=== PATIENT | male | born 2000 | race African-American/Black ===

== ENCOUNTER 2019-06-09 12:17 | Inpatient (IN) | payer OTHER ==
[~2019-06-09] VITALS: Ht 172.7 cm; Wt 100.0 kg
[2019-06-09] MEDS ORDERED: LEXA1TAB PO (12:41)
[2019-06-09 12:56] LABS: HEMATOCRIT 47.1 % (42.0-52.0); HEMOGLOBIN 14.6 g/dl (13.5-17.5); MEAN CORPUSCULAR HEMOGLOBIN 21.2 pg (27.0-33.0); MEAN CORPUSCULAR VOLUME 68.4 fl (80.0-96.0); PLATELET COUNT, AUTOMATED 340 10^3/uL (150-450); RED BLOOD COUNT 6.89 10^6/uL (4.30-6.10); WHITE BLOOD COUNT 6.8 10^3/uL (4.0-10.0)
[2019-06-09 13:33] LABS: ACETAMINOPHEN LEVEL < 2.0 UG/ML (10.0-30.0); ALBUMIN 3.8 GM/DL (3.2-5.2); ALT/SGPT 89 U/L (12-78); BILIRUBIN,DIRECT 0.1 MG/DL (0.0-0.2); BILIRUBIN,TOTAL 0.4 MG/DL (0.2-1.0); BLOOD UREA NITROGEN 13 MG/DL (7-18); CALCIUM LEVEL 9.6 MG/DL (8.5-10.1); CARBON DIOXIDE LEVEL 26 MEQ/L (21-32); CHLORIDE LEVEL 106 MEQ/L (98-107); CREATININE FOR GFR 1.08 MG/DL (0.70-1.30); ETHYL ALCOHOL (ETHANOL) < 0.003 % (0.000-0.010); GLUCOSE, FASTING 80 MG/DL (70-100); POTASSIUM SERUM 4.6 MEQ/L (3.5-5.1); SALICYLATE LEVEL < 1.7 MG/DL (5.0-30.0); SODIUM LEVEL 140 MEQ/L (136-145); TOTAL PROTEIN 7.6 GM/DL (6.4-8.2)
[2019-06-09 15:14] LABS: AMPHETAMINES LEVEL URINE NEGATIVE (NEGATIVE); BARBITURATES URINE NEGATIVE (NEGATIVE); BENZODIAZEPINES URINE NEGATIVE (NEGATIVE); CANNABINOIDS URINE NEGATIVE (NEGATIVE); COCAINE METABOLITE URINE NEGATIVE (NEGATIVE); METHADONE URINE NEGATIVE (NEGATIVE); OPIATES URINE NEGATIVE (NEGATIVE); PHENCYCLIDINE URINE NEGATIVE (NEGATIVE)
[2019-06-09] MEDS ORDERED: traZODone 50 MG TAB PO PRN (15:15)
[2019-06-09] MEDS ORDERED: NICOTINE 21MG/24HR 1 EA TRANSDERMAL TD PRN (15:15)
[2019-06-09 17:56] VITALS: BP 141/86
[2019-06-10 06:41] VITALS: BP 129/63
--- NOTE | 2019-06-10 11:47 | HPEPDOC ---
General Date of Admission Jun 09, 2019 at 15:06 Date of Service: Jun 10, 2019 Chief Complaint The patient is a 19-year-old male Who presented to the hospital with depression and suicidal ideation History of Present Illness Patient is a 19-year-old male with past medical history of depression who pr esented to the emergency room with depression and suicidal ideation. Patient was admitted to the inpatient mental health unit. Hospitalist medicine was consulted for medical screening evaluation. Currently patient reports that he is not experiencing any headache, nausea, vomiting, chest pain, shortness of breath, palpitations, abdominal pain, constipation, diarrhea or any urinary discomfort. Patient denies any change in his weight or appetite. Home Medications Scheduled Escitalopram Oxalate (Lexapro) 10 Mg Tablet, 10 MG PO DAILY, (Reported) Allergies Coded Allergies: SEAFOOD (Verified Allergy, Unknown, anaphylaxis, 06/09/19) Past Medical History Medical History Depression Surgical History Patient reports that he has laser eye surgery of both eyes. Family History - Patient has reported that his parents do not have any medical problems Social History - Denies the use of alcohol or illicit drugs; patient reports smoking 1 cigarette a day - Denies recent travel or sick contacts - [place] Occupation; this part of the [employer] Review of Systems Other systems 10 point review of systems complete, all negative otherwise stated in HPI Vital Signs - Vitals: BP 129/63, HR 68, RR 14, Sat 100RA, Temp 98.3F - General: Lying in bed, No acute distress, Speaking in full sentences, AAOx3 - HEENT: NC, AT, PERRLA - CVS: RRR, +S1S2 - Lungs: Fair air entry bilaterally, No appreciable wheezing / rales / rhonchi - Abdomen: Soft, Non-distended, Non-tender - Extremities: No lower extremity edema, No calf tenderness - Neuro: No focal motor or sensory deficit - Skin: No visible rashes Laboratory Data Labs 24H Laboratory Tests 2 06/09/19 12:39: Nucleated Red Blood Cells % (auto) 0.0 06/09/19 12:42: Anion Gap 8, Calcium Level 9.6, Total Bilirubin 0.4, Direct Bilirubin 0.1, Aspartate Amino Transf (AST/SGOT) 36, Alanine Aminotransferase (ALT/SGPT) 89H, Alkaline Phosphatase 92, Total Protein 7.6, Albumin 3.8, Albumin/Globulin Ratio 1.00, Thyroid Stimulating Hormone (TSH) 2.320, Salicylates Level < 1.7L, Acetaminophen Level < 2.0L, Ethyl Alcohol Level < 0.003 06/09/19 14:33: Urine Opiates Screen NEGATIVE, Urine Methadone Screen NEGATIVE, Urine Barbiturates Screen NEGATIVE, Urine Phencyclidine Screen NEGATIVE, Urine Amph etamines Screen NEGATIVE, Urine Benzodiazepines Screen NEGATIVE, Urine Cocaine Metabolite Screen NEGATIVE, Urine Cannabinoids Screen NEGATIVE CBC/BMP Laboratory Tests 06/09/19 12:39 06/09/19 12:42 Plan / VTE VTE Prophylaxis Ordered?: Yes Plan Plan Suicidal ideation / Depression - Patient has been admitted to inpatient mental health unit - This is currently being managed by psychiatry No significant medical problems DVT prophylaxis - c/w early ambulation Female salesman/owner was present throughout the duration of this history and physical examination Please re-consult hospitalist service as needed ANURAG HERRMANN MD Jun 10, 2019 11:47
--- NOTE | 2019-06-10 14:34 | MHHPEPDOC ---
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 The patient is met with and he is fairly guarded and vague and unable to describe the majority of his symptoms. The patient reports that he has no history of engaging this and had low mood, loss of interest, and insomnia after he joined the 8 months ago. Secondary to the stressful environment in the the patient generally appears ambivalent about interacting with anyone in the mental health unit. When I met with the patient he could only describe the above mentioned vague symptoms and continue to report that he has suicidal ideation with no intention or plan now that he is on the unit. Review Of Systems Depression: As above. Anxiety: The patient denies any excessive worry associated with physical symptoms. They deny any experience of discreet panic in the past. Domi: The patient denies any episodes of euphoria/dysphoria associated with decreased need for sleep, hedonism, talkatively or impulsivity lasting longer than 5 days. Psychotic: The patient denies any experiences of auditory or visual hallucinations. They deny any episodes of paranoia or delusional thinking in the past Trauma: The patient denies any traumatic events associated with nightmares or intrusive thoughts. Borderline: The patient screens negative for borderline personality at this junction. Past Psychiatric History The patient reports no history of psychiatric admissions, medication trials or current follow up. Denies any history of suicide attempts. Allergies Please see below. Family Psychiatric History The patient denies/is unaware any history of mental health history including addictions and suicide. Social History The patient is a never man with no children, self identifies his heterosexual. He lives in the [facility]. He originally came from [facility] and reports that he had a poor relationship with his parents due to reported corpor al punishment. He has been in the army for roughly 8 months. He reports he has 3 siblings that are younger, but he has a poor relationship with them. He subsists on income and works in the [employer]. No history of legal problems. Substance Abuse History The patient reports using tobacco roughly one cigarette a day. Denies excessive alcohol use, illicit drug use, or substance use treatment. Medical History Patient has no significant past medical history. Mental Status Examination General: Well dressed with good hygiene Speech: Spontaneous and fluid Thought processes: Linear and logical MSK: Smooth and coordinated gait, no signs of tremors or involuntary orofacial movements Thought content: Guarded Abstract reasoning, and computation: Intact Description of associations: Intact Description of abnormal or psychotic thoughts: Denies any suicidal or homicidal ideation. Denies any auditory or visual hallucinations. Does not appear to be responding to internal stimuli. Does not appear to be endorsing any bizarre or paranoid ideation. Judgment: Unclear Insight: Unclear Orientation: Alert and orientated 3 Cognition: Grossly normal Recent and remote memory: Intact Attention span and concentration: Intact Fund of knowledge: Adequate Mood: "fine" Affect: Dysthymic and mildly irritable Diagnoses Adjustment disorder, mild with disruption of mood and conduct. Tobacco use disorder, mild. Assessment and Plan Adjustment disorder: We'll start Wellbutrin 150 mg extended release. Discussed risks, benefits, and potential side effects as well as alternatives. Tobacco use disorder: Offer nicotine patch. Concern for malingering: We'll continue to monitor for discrepancies between objective and subjective reports. Disposition The patient will need a further inpatient admission in order to further understand the situation to treat his depression and to reduce his risk for suicide while lasting more than 2 midnights. Problem List 1. Risk of suicide. 2. Depression. 3. Ineffective coping Initial Treatment Plan 1. Patient was admitted on a 9.39 legal status. 2. Complete history was obtained. 3. With patients permission, family will be contacted and database will be expanded. 4. Patients medication regimen will be reviewed and changed accordingly. 5. Patient will be provided with protected environment. 6. Patient will be treated with individual, group, and milieu therapies. 7. Patient will receive supportive psych-education. 8. Discharge planning will commence immediately. 9. Outpatient follow-up treatment will be strongly recommended. 10. The initial treatment plan will focus initially on: Estimated Length Of Stay Three days. Time Spent 70 minutes. Vital Signs Vital Signs Date Time Temp Pulse Resp B/P (MAP) Pulse Ox O2 Delivery O2 Flow Rate FiO2 06/10/19 06:41 98.3 68 14 129/63 (85) 06/09/19 17:56 100 Room Air Medications Scheduled Escitalopram Oxalate (Lexapro) 10 Mg Tablet, 10 MG PO DAILY, (Reported) Allergies Coded Allergies: SEAFOOD (Verified Allergy, Unknown, anaphylaxis, 06/09/19) JUDI EVERETT DO Jun 10, 2019 14:34
[2019-06-10 20:30] VITALS: BP 142/87
[2019-06-11 06:36] VITALS: BP 122/58
[2019-06-11] MEDS: buPROPion **XL** TABLET 150MG (WELLBUTRIN XL) PO SCH (08:47)
--- NOTE | 2019-06-11 11:42 | MHIPNPDOC ---
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 The patient is met with and he is fairly guarded and vague and unable to describe the majority of his symptoms. The patient reports that he has no history of engaging this and had low mood, loss of interest, and insomnia after he joined the 8 months ago. Secondary to the stressful environment in the the patient generally appears ambivalent about interacting with anyone in the mental health unit. When I met with the patient he could only describe the above mentioned vague symptoms and continue to report that he has suicidal ideation with no intention or plan now that he is on the unit. Interval History The patient was met with today. He was notably still somewhat guarded and dysthymic. The patient was met with in his room he was reading his book while laying unusually on his bed. The patient reports that he still feels quite down, after exploration he reports that he feels that the [employer] is a major source of his stress and that "everyone knows" how he might get better. When asked to elaborate he describes that this is a major stressor and that the [employer], if he was med boarded he would be much more amenable. The patient reports that he still had some trouble sleeping last night and had felt that the trazodone was not as helpful. He has had no major behavior problems and has become more active on the unit after significant prompting from staff. The patient reports that he still has some hopelessness; however, he had initially admitted to suicidal thoughts but when questioned more assertively he rapidly loses his reported "suicidal ideation" and describes far more likely hopelessness about his situation of two more years in the . No major behavioral problems overnight. Review Of Systems General: Denies fever or appetite changes Cardiovascular: Denies Chest pain or palpations GI: Denies Nausea, vomiting, or bowel changes Respiratory: Denies shortness of breath or cough Neuro: Denies dizziness, tremors Derm: Denies any rashes or pruritus : Denies any dysuria or urinary problems MSK: Denies any muscle tightness or stiffness HEENT: Denies any vision changes or headaches Heme/Lymph: denies any bruising or bleeding Endo: denies any cold/heat intolerance or water intake changes Psychotherapy None on this visit. Vital Signs Reviewed. Mental Status Examination General: Well dressed with good hygiene Speech: Spontaneous and fluid Thought processes: Linear and logical MSK: Smooth and coordinated gait, no signs of tremors or involuntary orofacial movements Thought content: Hopelessness Abstract reasoning, and computation: Intact Description of associations: Intact Description of abnormal or psychotic thoughts: Reports suicidal ideation as above, denies homicidal ideation. Denies auditory or visual hallucinations. Does not appear to be responding to internal stimuli. Judgment: Limited Insight: Limited Orientation: Alert and oriented 3 Cognition: Grossly normal Recent and remote memory: Intact Attention span and concentration: Intact Fund of knowledge: Adequate Mood: "fine" Affect: Fairly dysthymic Diagnoses Adjustment disorder, mild with disruption of mood and conduct. Tobacco use disorder, mild. Assessment and Plan Adjustment disorder: Continue Wellbutrin 150 mg extended release, will increase trazodone to 100 mg nightly. Discussed risks benefits and potential side effects of this medication combination. Tobacco use disorder: Offer nicotine patch. Concern for malingering: We'll continue to monitor for discrepancies between objective and subjective reports. Disposition The patient will need a further inpatient admission in order to treat his de pression and reported suicidal ideation as well as planned for safe discharge. Time Spent 15 minutes [id number] Vital Signs Vital Signs Date Time Temp Pulse Resp B/P (MAP) Pulse Ox O2 Delivery O2 Flow Rate FiO2 06/11/19 06:36 97.9 61 14 122/58 (79) 06/10/19 20:30 Room Air 06/09/19 17:56 100 Current Medications Current Medications Medications (Trade) Dose Ordered Sig/Rina Route PRN Reason Start Time Stop Time Status Last Admin Dose Admin Bupropion HCl (Wellbutrin Xl) 150 mg DAILY PO 06/11/19 09:00 06/11/19 08:47 Home Med (Med Rec Complete!) ASDIRECTED XX 06/09/19 15:00 06/09/19 14:53 DC Nicotine (Nicoderm Cq 21mg) 1 patch DAILY PRN TD smoking cessation 06/09/19 15:15 Trazodone HCl (Desyrel) 50 mg QHSP PRN PO INSOMNIA 06/09/19 15:15 06/10/19 20:46 Allergies Coded Allergies: SEAFOOD (Verified Allergy, Unknown, anaphylaxis, 06/09/19) JUDI EVERETT DO Jun 11, 2019 11:42
[2019-06-11 18:15] VITALS: BP 146/65
[2019-06-11] MEDS ORDERED: traZODone 50 MG TAB PO PRN (18:30)
[2019-06-12 06:14] VITALS: BP 123/66
--- NOTE | 2019-06-12 07:59 | MHIPNPDOC ---
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 The patient is met with and he is fairly guarded and vague and unable to describe the majority of his symptoms. The patient reports that he has no history of engaging this and had low mood, loss of interest, and insomnia after he joined the 8 months ago. Secondary to the stressful environment in the the patient generally appears ambivalent about interacting with anyone in the mental health unit. When I met with the patient he could only describe the above mentioned vague symptoms and continue to report that he has suicidal ideation with no intention or plan now that he is on the unit. Interval History The patient was met with today. He continues to report he is depressed and the Wellbutrin has been unhelpful. He reports the increased trazodone was not helpful for improving his sleep. Staff note that he still is quite hopeless and depressed, walking around the unit, attending more groups after being urged. He has had no major behavioral problem since, otherwise been amenable. Review Of Systems General: Denies fever or appetite changes Cardiovascular: Denies Chest pain or palpations GI: Denies Nausea, vomiting, or bowel changes Respiratory: Denies shortness of breath or cough Neuro: Denies dizziness, tremors Derm: Denies any rashes or pruritus : Denies any dysuria or urinary problems MSK: Denies any muscle tightness or stiffness HEENT: Denies any vision changes or headaches Heme/Lymph: denies any bruising or bleeding Endo: denies any cold/heat intolerance or water intake changes Psychotherapy None on this visit. Vital Signs Reviewed. Mental Status Examination General: Well dressed with good hygiene Speech: Spontaneous and fluid Thought processes: Linear and logical MSK: Smooth and coordinated gait, no signs of tremors or involuntary orofacial movements Thought content: Hopelessness Abstract reasoning, and computation: Intact Description of associations: Intact Description of abnormal or psychotic thoughts: Reports suicidal ideation as above, denies homicidal ideation. Denies auditory or visual hallucinations. Does not appear to be responding to internal stimuli. Judgment: Limited Insight: Limited Orientation: Alert and oriented 3 Cognition: Grossly normal Recent and remote memory: Intact Attention span and concentration: Intact Fund of knowledge: Adequate Mood: "fine" Affect: Fairly dysthymic Diagnoses Adjustment disorder, mild with disruption of mood and conduct. Tobacco use disorder, mild. Assessment and Plan Adjustment disorder: Discontinue Wellbutrin and trazodone, start venlafaxine 37.5 mg daily extended release and Rozerem 8 mg nightly. Discussed risks, benefits and potential side effects of these medications as well as alternative approach. Tobacco use disorder: Offer nicotine patch. Concern for malingering: We'll continue to monitor for discrepancies between objective and subjective reports. Disposition Continue to observe, potential discharge Sunday. Time Spent 15 minutes. Vital Signs Vital Signs Date Time Temp Pulse Resp B/P (MAP) Pulse Ox O2 Delivery O2 Flow Rate FiO2 06/12/19 06:14 98.5 76 18 123/66 (85) 06/10/19 20:30 Room Air 06/09/19 17:56 100 Current Medications Current Medications Medications (Trade) Dose Ordered Sig/Rina Route PRN Reason Start Time Stop Time Status Last Admin Dose Admin Bupropion HCl (Wellbutrin Xl) 150 mg DAILY PO 06/11/19 09:00 06/11/19 08:47 Home Med (Med Rec Complete!) ASDIRECTED XX 06/09/19 15:00 06/09/19 14:53 DC Nicotine (Nicoderm Cq 21mg) 1 patch DAILY PRN TD smoking cessation 06/09/19 15:15 Trazodone HCl (Desyrel) 50 mg QHSP PRN PO INSOMNIA 06/09/19 15:15 06/11/19 18:18 DC 06/10/19 20:46 Trazodone HCl (Desyrel) 100 mg QHSP PRN PO INSOMNIA 06/11/19 18:30 06/11/19 21:22 Allergies Coded Allergies: SEAFOOD (Verified Allergy, Unknown, anaphylaxis, 06/09/19) JUDI EVERETT DO Jun 12, 2019 07:59
[2019-06-12] MEDS: buPROPion **XL** TABLET 150MG (WELLBUTRIN XL) PO SCH (08:46)
[2019-06-12 18:00] VITALS: BP 119/55
[2019-06-12] MEDS: RAMELTEON 8 MG TAB (ROZEREM) PO SCH (22:03)
[2019-06-13 06:07] VITALS: BP 100/58
[2019-06-13] MEDS: VENLAFAXINE **XR** 37.5 MG CAPSULE PO SCH (08:07)
--- NOTE | 2019-06-13 11:31 | MHIPNPDOC ---
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 The patient is met with and he is fairly guarded and vague and unable to describe the majority of his symptoms. The patient reports that he has no history of engaging this and had low mood, loss of interest, and insomnia after he joined the 8 months ago. Secondary to the stressful environment in the the patient generally appears ambivalent about interacting with anyone in the mental health unit. When I met with the patient he could only describe the above mentioned vague symptoms and continue to report that he has suicidal ideation with no intention or plan now that he is on the unit. Interval History The patient was met with today. He reports he still feels down and somewhat depressed, but had slept mildly better with the Rozerem 8 mg last night. He reports some mild upset stomach, but feels that it was due to the nicotine patch. The patient reports that he still feels down, but has been attending groups more frequently. No major behavioral problems overnight, has been a menable with staff directions and describes that he otherwise has been doing well. Reports intermittent fleeting suicidal ideation of unchanging quality. Review Of Systems General: Denies fever or appetite changes Cardiovascular: Denies Chest pain or palpations Respiratory: Denies shortness of breath or cough Neuro: Denies dizziness, tremors Derm: Denies any rashes or pruritus : Denies any dysuria or urinary problems MSK: Denies any muscle tightness or stiffness HEENT: Denies any vision changes or headaches Heme/Lymph: denies any bruising or bleeding Endo: denies any cold/heat intolerance or water intake changes Psychotherapy None on this visit. Vital Signs Reviewed. Mental Status Examination General: Well dressed with good hygiene Speech: Spontaneous and fluid Thought processes: Linear and logical MSK: Smooth and coordinated gait, no signs of tremors or involuntary orofacial movements Thought content: Hopelessness Abstract reasoning, and computation: Intact Description of associations: Intact Description of abnormal or psychotic thoughts: Reports suicidal ideation as above, denies homicidal ideation. Denies auditory or visual hallucinations. Does not appear to be responding to internal stimuli. Judgment: Limited Insight: Limited Orientation: Alert and oriented 3 Cognition: Grossly normal Recent and remote memory: Intact Attention span and concentration: Intact Fund of knowledge: Adequate Mood: "fine" Affect: Fairly dysthymic Diagnoses Adjustment disorder, mild with disruption of mood and conduct. Tobacco use disorder, mild. Assessment and Plan Adjustment disorder: Continue Effexor 37.5 mg extended release daily and Rozerem 8 mg nightly. Discussed risks, benefits and potential side effects of these medications as well as alternative approach. Tobacco use disorder: Offer nicotine patch. Concern for malingering: We'll continue to monitor for discrepancies between objective and subjective reports. Disposition Potential discharge Sunday, further observation and will need further treatment to reduce suicidal ideation. Time Spent 15 minutes [id number]. Sunday Vital Signs Vital Signs Date Time Temp Pulse Resp B/P (MAP) Pulse Ox O2 Delivery O2 Flow Rate FiO2 06/13/19 06:07 97.7 60 16 100/58 (72) 06/10/19 20:30 Room Air 06/09/19 17:56 100 Current Medications Current Medications Medications (Trade) Dose Ordered Sig/Rina Route PRN Reason Start Time Stop Time Status Last Admin Dose Admin Bupropion HCl (Wellbutrin Xl) 150 mg DAILY PO 06/11/19 09:00 06/12/19 18:42 DC 06/12/19 08:46 Home Med (Med Rec Complete!) ASDIRECTED XX 06/09/19 15:00 06/09/19 14:53 DC Nicotine (Nicoderm Cq 21mg) 1 patch DAILY PRN TD smoking cessation 06/09/19 15:15 06/13/19 08:26 Ramelteon (Rozerem) 8 mg QHS PO 06/12/19 21:00 06/12/19 22:03 Trazodone HCl (Desyrel) 50 mg QHSP PRN PO INSOMNIA 06/09/19 15:15 06/11/19 18:18 DC 06/10/19 20:46 Trazodone HCl (Desyrel) 100 mg QHSP PRN PO INSOMNIA 06/11/19 18:30 06/12/19 18:42 DC 06/11/19 21:22 Venlafaxine HCl (Effexor Xr) 37.5 mg DAILY PO 06/13/19 09:00 06/13/19 08:07 Allergies Coded Allergies: SEAFOOD (Verified Allergy, Unknown, anaphylaxis, 06/09/19) JUDI EVERETT DO Jun 13, 2019 11:31
[2019-06-13 16:06] VITALS: BP 158/71
[2019-06-13] MEDS: RAMELTEON 8 MG TAB (ROZEREM) PO SCH (22:09)
[2019-06-13] MEDS ORDERED: RAMELTEON 8 MG TAB (ROZEREM) PO ONE (23:30)
[2019-06-14 06:22] VITALS: BP 121/65
[2019-06-14] MEDS: VENLAFAXINE **XR** 37.5 MG CAPSULE PO SCH (08:08)
[2019-06-14 15:35] VITALS: BP 135/63
[2019-06-14] MEDS: RAMELTEON 8 MG TAB (ROZEREM) PO SCH (23:06)
[2019-06-15] MEDS ORDERED: MIRTAZAPINE 15 MG TAB PO ONE (00:15)
[2019-06-15 06:35] VITALS: BP 131/60
[2019-06-15] MEDS: VENLAFAXINE **XR** 37.5 MG CAPSULE PO SCH (09:29)
[2019-06-15 15:42] VITALS: BP 131/61
[2019-06-15] MEDS: RAMELTEON 8 MG TAB (ROZEREM) PO SCH (22:50)
[2019-06-16 06:49] VITALS: BP 113/56
[2019-06-16] MEDS: VENLAFAXINE **XR** 37.5 MG CAPSULE PO SCH (10:16)
--- NOTE | 2019-06-16 10:20 | MHDSPDOC ---
[facility] Discharge Summary Discharge Summary DATE OF ADMISSION: Jun 09, 2019 at 15:06 DATE OF DISCHARGE: 06/17/19 Discharge Fadumo Sarabia MRN: N/A Date of : N/A Date of Service: 06/16/2019 Diagnoses Adjustment disorder, mild with disruption of mood and conduct. Tobacco use disorder, mild. 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 The patient is met with and he is fairly guarded and vague and unable to describe the majority of his symptoms. The patient reports that he has no history of engaging this and had low mood, loss of interest, and insomnia after he joined the 8 months ago. Secondary to the stressful environment in the the patient generally appears ambivalent about interacting with anyone in the mental health unit. When I met with the patient he could only describe the above mentioned vague symptoms and continue to report that he has suicidal ideation with no intention or plan now that he is on the unit. Consultants Involved Hospitalist/PCP screening Treatment and Progress On The Unit The base was admitted to the inpatient unit, subsequently started on Wellbutrin 150 mg daily with negative effects. He subsequently was changed from trazodone, Wellbutrin to Rozerem 8 mg, increased to 16 mg over the weekend as well as venlafaxine 37.5 mg with positive results on his mood and affect. He did appear to a continue to endorse very bizarre and vague symptoms of depression giving the treatment team the concern that he was malingering. After significant discussion with him, it did appear that he did wish to leave the , creating a further suspicion that he was potentially malingering in order to get a medical board. After observation on the weekend, the patient has been denying suicidal, homicidal ideation for several days and requested to leave on the day of discharge. He did not meet involuntary criteria as he had a normal mental status exam, had been denying suicidal, homicidal ideation as above for several days, was cooperative, pleasant and had not been demonstrating any dangerous or unusual behavior. He was able to attend to his basic needs and was discharged in good mik. 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 He does well after a relatively extensive period of observation and treatment. Mental Status Examination General: Well dressed with good hygiene Speech: Spontaneous and fluid Thought processes: Linear and logical MSK: Smooth and coordinated gait, no signs of tremors or involuntary orofacial movements Thought content: Future orientated Abstract reasoning, and computation: Intact Description of associations: Intact Description of abnormal or psychotic thoughts: Denies any suicidal or homicidal ideation. Denies any auditory or visual hallucinations. Does not appear to be responding to internal stimuli. Does not appear to be endorsing any bizarre or paranoid ideation. Judgment: fair Insight: fair Orientation: Alert and orientated 3 Cognition: Grossly normal Recent and remote memory: Intact Attention span and concentration: Intact Fund of knowledge: Adequate Mood: "okay" Affect: Euthymic with a full range Follow Up The social work team worked during the predischarge meeting in order to evaluate for further issues of lethality address them fully before discharge. They worked on safety planning with the patient's family members in order to ensure that the patient will have a safe and effective discharge. Time Spent The amount of time spent in the coordination of care for this patient was approximately 60 minutes. Sunday Vital Signs/I&Os Vital Signs Date Time Temp Pulse Resp B/P (MAP) Pulse Ox O2 Delivery O2 Flow Rate FiO2 06/16/19 06:49 97.3 52 12 113/56 (75) Room Air Medications Scheduled Melatonin (Melatonin) 3 Mg Tablet, 1 TAB PO QPM for sleep for 30 Days, #30 Venlafaxine HCl (Venlafaxine HCl ER) 37.5 Mg Cap.er.24h, 37.5 MG PO DAILY for mood for 7 Days, #7 Scheduled PRN Nicotine (Nicotine Patch) 21 Mg Patch.td24, 1 PATCH TD DAILY PRN for smoking cessation for 30 Days, #30 Allergies Coded Allergies: SEAFOOD (Verified Allergy, Unknown, anaphylaxis, 06/09/19) JUDI EVERETT DO Jun 16, 2019 10:20
[2019-06-16] MEDS ORDERED: VENL37.598 PO (10:22)
[2019-06-16] MEDS ORDERED: NICO21PAT TD (10:22)
[2019-06-16] MEDS ORDERED: MELA3TAB41 PO (10:22)
== END 2019-06-16 11:40 | disposition home or self-care (01) | DRG 882 ==
LOC: EDBD 12:17 → M ED 12:17 → M ED INP 15:06 → M PSY 16:55
PROVIDERS: ADMIT Psychiatry & Neurology Addiction Medicine; ATTEND Psychiatry & Neurology Addiction Medicine
DX: F43.25 Adjustment disorder with mixed disturbance of emotions and conduct (principal); R45.851 Suicidal ideations; F17.200 Nicotine dependence, unspecified, uncomplicated; Z91.013 Allergy to seafood

== ENCOUNTER 2019-10-24 14:08 | Inpatient (IN) | payer OTHER ==
[~2019-10-24] VITALS: Ht 172.7 cm; Wt 117.2 kg
[~2019-10-24 14:08] MED LIST: LEXA1TAB PO; MELA3TAB62 PO; NICO21PAT TD; VENL37.598 PO
[2019-10-24 14:50] LABS: HEMATOCRIT 46.8 % (42.0-52.0); HEMOGLOBIN 14.7 g/dl (13.5-17.5); MEAN CORPUSCULAR HEMOGLOBIN 21.6 pg (27.0-33.0); MEAN CORPUSCULAR HGB CONC 31.4 g/dl (32.0-36.5); MEAN CORPUSCULAR VOLUME 68.9 fl (80.0-96.0); PLATELET COUNT, AUTOMATED 306 10^3/uL (150-450); RED BLOOD COUNT 6.79 10^6/uL (4.30-6.10); WHITE BLOOD COUNT 6.5 10^3/uL (4.0-10.0)
[2019-10-24 15:07] LABS: AMPHETAMINES LEVEL URINE NEGATIVE (NEGATIVE); BARBITURATES URINE NEGATIVE (NEGATIVE); BENZODIAZEPINES URINE NEGATIVE (NEGATIVE); CANNABINOIDS URINE NEGATIVE (NEGATIVE); COCAINE METABOLITE URINE NEGATIVE (NEGATIVE); METHADONE URINE NEGATIVE (NEGATIVE); OPIATES URINE NEGATIVE (NEGATIVE); PHENCYCLIDINE URINE NEGATIVE (NEGATIVE)
[2019-10-24 15:22] LABS: ACETAMINOPHEN LEVEL < 2.0 UG/ML (10.0-30.0); ALT/SGPT 126 U/L (12-78); BILIRUBIN,DIRECT < 0.1 MG/DL (0.0-0.2); BILIRUBIN,TOTAL 0.3 MG/DL (0.2-1.0); BLOOD UREA NITROGEN 13 MG/DL (7-18); CALCIUM LEVEL 9.1 MG/DL (8.5-10.1); CARBON DIOXIDE LEVEL 26 MEQ/L (21-32); CHLORIDE LEVEL 108 MEQ/L (98-107); CREATININE FOR GFR 1.23 MG/DL (0.70-1.30); ETHYL ALCOHOL (ETHANOL) < 0.003 % (0.000-0.010); GLUCOSE, FASTING 84 MG/DL (70-100); POTASSIUM SERUM 4.4 MEQ/L (3.5-5.1); SALICYLATE LEVEL < 1.7 MG/DL (5.0-30.0); SODIUM LEVEL 139 MEQ/L (136-145); TOTAL PROTEIN 7.5 GM/DL (6.4-8.2)
[2019-10-24] MEDS ORDERED: traZODone 50 MG TAB PO PRN (21:00)
[2019-10-24] MEDS ORDERED: MAALOX 30 ML SUSP *UDC PO PRN (21:00)
[2019-10-24] MEDS ORDERED: ACETAMINOPHEN TAB 650MG DOSE (2X325MG) PO PRN (21:00)
[2019-10-24] MEDS ORDERED: MOM 30ML SUSPENSION UDC PO PRN (21:00)
[2019-10-24 22:48] VITALS: BP 137/82
[2019-10-25 06:24] VITALS: BP 123/68
--- NOTE | 2019-10-25 09:26 | HPEPDOC ---
General Date of Admission Oct 24, 2019 at 20:47 Date of Service: Oct 25, 2019 Chief Complaint The patient is a 19-year-old male admitted with a reason for visit of Unspecified Depressive Disorder. Source: Patient Exam Limitations: No limitations Timing/Duration: Other Severity: Other (not applicable) Associated Symptoms: Other (. None) Home Medications No Active Prescriptions or Reported Meds Allergies Coded Allergies: SEAFOOD (Verified Allergy, Unknown, anaphylaxis, 06/09/19) Past Medical History Medical History None Surgical History None Social History * Smoker: Denies Alcohol: Denies Drugs: denies A-FIB/CHADSVASC A-FIB History Current/History of A-Fib/PAF?: No Review of Systems Constitutional: Denies: Chills, Fever, Malaise, Night Sweats, Weakness, Fatigue, Weight Loss, Lethargy, Other Eyes: Denies: Pain, Vision change, Conjunctivae inflammation, Eyelid inflammation, Redness, Other ENT: Denies: Head Aches, Ear Pain, Dysphagia, Sinus Congestion, Post Nasal Drip, Sore Throat, Epistaxis, Other Symptoms Skin: Denies: Rash, Lesions, Jaundice, Bruising, Itching, Dry, Breakdown, Nail Changes, Other Pulmonary: Denies: Dyspnea, Cough, Pleuritic Chest Pain, Other Symptoms Cardiovascular: Denies: Chest Pain, Palpitations, Orthopnea, Paroxysmal Noc. Dyspnea, Edema, Lt Headedness, Other Symptoms Gastrointestinal: Denies: Nausea, Vomiting, Abdominal Pain, Diarrhea, Constipation, Melena, Hematochezia, Other Symptoms Genitourinary: Denies: Dysuria, Frequency, Incontinence, Hematuria, Retention, Other Symptoms Hematologic: Denies: Bruising, Bleeding Excessively, Petecchia, Purpura, Enlarged Lymph Nodes, Other Hematologic Endocrine: Denies: Polydipsia, Polyphagia, Polyuria, Heat Intolerance, Cold Intolerance, Other Endocrine Sx Musculoskeletal: Denies: Neck Pain, Back Pain, Shoulder Pain, Arm Pain, Hand Pain, Leg Pain, Foot Pain, Joint Pain, Muscle Pain, Spasms, Other Symptoms Neurological: Denies: Weakness, Numbness, Incoordination, Change in speech, Confusion, Seizures, Other Symptoms Psych: Reports: Depression, Thoughts of Self Harm, Other Psych (. Suicidal) Physical Examination General Exam: Positive: Alert, Cooperative Eye Exam: Positive: PERRLA, Conjunctiva & lids normal ENT Exam: Positive: Atraumatic, Mucous membr. moist/pink Neck Exam: Positive: Supple Chest Exam: Positive: Clear to auscultation, Normal air movement Heart Exam: Positive: Rate Normal, Normal S1, Normal S2 Abdomen Exam: Positive: Normal bowel sounds, Soft Extremity Exam: Positive: Normal pulses Skin Exam: Positive: Nl turgor and temperature Neuro Exam: Positive: Strength at 5/5 X4 ext, Cranial Nerves 3-12 NL Psych Exam: Positive: Oriented x 3, Other (, depressed affect) Vital Signs Vital Signs Date Time Temp Pulse Resp B/P (MAP) Pulse Ox O2 Delivery O2 Flow Rate FiO2 10/25/19 06:24 99.3 71 18 123/68 (86) 99 Room Air Laboratory Data Labs 24H Laboratory Tests 2 10/24/19 14:32: Nucleated Red Blood Cells % (auto) 0.0, Anion Gap 5L, Calcium Level 9.1, Total Bilirubin 0.3, Direct Bilirubin < 0.1, Aspartate Amino Transf (AST/SGOT) 52H, Alanine Aminotransferase (ALT/SGPT) 126H, Alkaline Phosphatase 88, Total Protein 7.5, Albumin 4.0, Albumin/Globulin Ratio 1.14, Thyroid Stimulating Hormone (TSH) 2.230, Salicylates Level < 1.7L, Urine Opiates Screen NEGATIVE, Urine Methadone Screen NEGATIVE, Acetaminophen Level < 2.0L, Urine Barbiturates Screen NEGATIVE, Urine Phencyclidine Screen NEGATIVE, Urine Amphetamines Screen NEGATIVE, Urine Benzodiazepines Screen NEGATIVE, Urine Cocaine Metabolite Screen NEGATIVE, Urine Cannabinoids Screen NEGATIVE, Ethyl Alcohol Level < 0.003 CBC/BMP Laboratory Tests 10/24/19 14:32 Problems (1) Suicidal ideation Status: Acute Problem Text: Patient was admitted to [facility] for psychiatric care Individual and group counseling, as per psychiatry Pharmaceutical intervention as per psychiatry His CBC, CMP and liver enzymes are essentially within normal limits and no further medical workup or follow-up as needed. Please call for follow-up ON as needed basis (2) Depressive disorder, not elsewhere classified Status: Acute Problem Text: As per psych Plan / VTE VTE Prophylaxis Ordered?: Yes TERRY PERKINS MD Oct 25, 2019 09:26
[2019-10-25] MEDS: CitaloPRAM (CeleXA) 20 MG TAB PO SCH (12:53)
[2019-10-25 16:14] VITALS: BP 149/89
[2019-10-26 06:46] VITALS: BP 141/70
[2019-10-26] MEDS: CitaloPRAM (CeleXA) 20 MG TAB PO SCH (07:54)
[2019-10-26 16:08] VITALS: BP 137/65
--- NOTE | 2019-10-27 06:21 | MHIPN ---
DATE: 10/26/2019 The patient, today, states, "I'm doing better." He says he is not suicidal. He states, "I just needed time to cope so that I can use my coping skills." The patient tells me, however, he did not sleep at all last night and it is not clear why other than he thinks it was that maybe he slept too much on days. The patient is still very vague as to what his plan is when he gets discharged from the [employer]. MENTAL STATUS EXAMINATION: This patient is alert and oriented times three. Eye contact is fair. Psychomotor activity is decreased. He tends to mumble, and so often you have to ask him to repeat what he is saying. There is no formal thought disorder noted. He says his mood is "better." Affect is restricted but appropriate to mood. He is not psychotic, suicidal, homicidal. Concentration is fair. Memory intact. Insight and judgment are fair. DIAGNOSIS: Other specified depressive disorder. TREATMENT PLAN: At this point, we will continue to monitor the patient for continued elevation and stabilization of his mood and continued resolution of suicidal ideations, and so far he seems to be tolerating the Celexa. He will be discharge with appropriate followup when stable.
[2019-10-27 06:42] VITALS: BP 140/82
--- NOTE | 2019-10-27 09:22 | MHDSPDOC ---
[facility] Discharge Summary Discharge Summary DATE OF ADMISSION: Oct 24, 2019 at 20:47 DATE OF DISCHARGE: 10/27/19 Discharge Fadumo Sarabia MRN: N/A Date of : N/A Date of Service: 10/27/2019 Diagnoses Adjustment disorder with disruption of mood and conduct. Tobacco use disorder, mild. History of Present Illness The patient a 19-year-old man who I have treated previously presents after reportedly stating that he had been suicidal on a questionnaire and his out-processing paperwork for leaving the . He was brought in out of an abundance of caution and admitted to the inpatient unit. Consultants Involved Hospitalist/PCP screening Treatment and Progress On The Unit The patient was admitted to the inpatient unit and subsequently restarted on his home medications of trazodone, however, he was additionally started on citalopram increased to a total of 20 mg daily with positive effects. He was observed over the weekend where he had no behavior problems, had denied suicidal and homicidal ideation without any signs of difficulty controlling his mood or behavior. He attended treatment and requested discharge. Discharge Assessment The patient a 19-year-old man with a history of adjustment problems presents after reporting suicidal thoughts on a survey on his out-processing from the , he is admitted out of an abundance of caution and started on appropriate treatment. The patient at the time of discharge did not meet criteria for involuntary admission/extension due to having a normal mental status exam, fair insight into the situation, They are engaged in the discharge process, as well as being friendly and amenable in behavioral control and havent been engaging in any observed concerning behavior or ideation recently. They decline voluntary extension/admission at this time and must be discharged in good mik, as Im unable to make a case for holding the patient against their will. They may have historical risk factors of admissions and other interactions with psychiatry however, those are not modifiable from a clinical perspective. The patient will need to be discharged in good mik. Mental Status Examination General: Well dressed with good hygiene Speech: Spontaneous and fluid Thought processes: Linear and logical MSK: Smooth and coordinated gait, no signs of tremors or involuntary orofacial movements Thought content: Future orientated Abstract reasoning, and computation: Intact Description of associations: Intact Description of abnormal or psychotic thoughts: Denies any suicidal or homicidal ideation. Denies any auditory or visual hallucinations. Does not appear to be responding to internal stimuli. Does not appear to be endorsing any bizarre or paranoid ideation. Judgment: fair Insight: fair Orientation: Alert and orientated 3 Cognition: Grossly normal Recent and remote memory: Intact Attention span and concentration: Intact Fund of knowledge: Adequate Mood: "okay" Affect: Euthymic with a full range Follow Up The social work team worked during the predischarge meeting in order to evaluate for further issues of lethality address them fully before discharge. They worked on safety planning with the patient's family members in order to ensure that the patient will have a safe and effective discharge. Time Spent The amount of time spent in the coordination of care for this patient was approximately 45 minutes. Sunday Vital Signs/I&Os Vital Signs Date Time Temp Pulse Resp B/P (MAP) Pulse Ox O2 Delivery O2 Flow Rate FiO2 10/27/19 06:42 98.2 67 14 140/82 (101) 98 Room Air Medications Scheduled Citalopram Hydrobromide (Celexa) 20 Mg Tablet, 20 MG PO DAILY for mood for 7 Days, #7 Scheduled PRN Trazodone HCl (Trazodone HCl) 50 Mg Tablet, 50 MG PO QHSP PRN for INSOMNIA for 7 Days, #7 Allergies Coded Allergies: SEAFOOD (Verified Allergy, Unknown, anaphylaxis, 06/09/19) JUDI EVERETT DO Oct 27, 2019 09:22
[2019-10-27] MEDS: CitaloPRAM (CeleXA) 20 MG TAB PO SCH (09:43)
[2019-10-27] MEDS ORDERED: CELE20TA PO (10:43)
[2019-10-27] MEDS ORDERED: TRAZ-252 PO (10:44)
--- NOTE | 2019-10-27 15:24 | MHHPE ---
DATE OF ADMISSION: 10/24/2019 DATE OF EVALUATION: 10/25/2019 HISTORY OF PRESENT ILLNESS: This is a 19-year-old man who presents to the emergency room stating, "I want to ." He states he has a plan to either overdose or cut his wrists, and that he has been feeling that way for months. The patient states that he was having suicidal thoughts while he was having his physical exam done. In the emergency room, it sounded like he kept switching back and forth from being suicidal and not being suicidal. He would contract for safety. Patient has been attending [facility]. He says he has been attending once a week, and that they have him on Lexapro, but he says he has not taken the medicine for about a month now. The patient says that he has been feeling depressed for a long time now, actually since he was hospitalized the last time in the inpatient unit in June 2019, and most recently he said he had been on Lexapro. He has been treated with Effexor, Wellbutrin, Prozac, maybe other medications he may not remember. I did not eliciting any hypomanic or manic-like symptoms, posttraumatic stress disorder (PTSD), obsessive-compulsive disorder (OCD), or panic-like symptoms in this patient. PAST PSYCHIATRIC HISTORY: He has one prior hospitalization in June 2019 at [facility], and they discharged him on Effexor 37.5 mg daily and melatonin for sleep. When he was admitted in June 2019, the records say that he was saying he was depressed and having suicidal thoughts of wanting to either overdose or drink bleach. Patient has never made any suicidal attempts. FAMILY HISTORY: There is no significant history of psychiatric problems in the family or any suicides. MEDICAL HISTORY: He says he does have pain in his neck and back, and he does have asthma. SUBSTANCE ABUSE: He denies any problems with alcohol or drugs. ABUSE HISTORY: He denies any problems with physical or sexual abuse in his past. REVIEW OF SYSTEMS: VITAL SIGNS: Blood pressure 123/68, pulse 71. APPEARANCE: He is not in any apparent distress. NEUROMUSCULAR SYSTEM: I did not observe his gait, but he is not noted to have any involuntary movements of his extremities. All other systems were reviewed and found to be negative. MENTAL STATUS EXAMINATION: He is alert and oriented times three. He is cooperative. He spoke in very low tone. He speaks in a monotone. Sometimes I have to ask him to repeat himself. He describes his mood as depressed. Affect is constricted but appropriate. There is no formal thought disorder noted. He is denying suicidal ideation now. Denies homicidal ideations, and he is not psychotic. Concentration is fair, memory intact. Insight and judgment poor. DIAGNOSIS: Other specified depressive disorder, rule out major depressive disorder. TREATMENT PLAN: At this point, the patient states that he is depressed. He does say that he feels hopeless and helpless and has feelings of worthlessness. He has not taken his medication in about a month. I am going to go ahead and start him on a trial of Celexa 20 mg daily. We will continue to monitor him for continued elevation and stabilization of his mood and continued resolution of suicidal ideation. (Addendum to history of present illness): The patient did state that he feels depressed, hopeless, and helpless, and he has feelings of worthlessness. 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 I asked him if he had any family or any friends that were supportive, and he indicated that he did not. [place]
== END 2019-10-27 14:35 | disposition home or self-care (01) | DRG 882 ==
LOC: M ED 14:08 → M ED INP 20:47 → M PSY 22:32
PROVIDERS: ADMIT Psychiatry & Neurology Psychiatry; ATTEND Psychiatry & Neurology Addiction Medicine
DX: F43.23 Adjustment disorder with mixed anxiety and depressed mood (principal); R45.851 Suicidal ideations; Z91.013 Allergy to seafood; F17.200 Nicotine dependence, unspecified, uncomplicated